=== PATIENT | male | born 1980 | race Caucasian/White ===

== ENCOUNTER 2024-06-12 22:11 | Emergency (ER) | payer OTHER, SELFPAY ==
[2024-06-12 22:14] VITALS: BP 147/85
--- NOTE | 2024-06-13 00:36 | ED.GENMED ---
History of Present Illness
General
Chief Complaint: Musculo-Skeletal Complaint
Source: patient
Exam Limitations: none
Time Seen by Provider: 06/13/24 00:14
History of Present Illness
History of Present Illness:
43yoM with no significant past medical history presenting for evaluation of rib pain. There is a drop-down area underneath his garage. He was pushing a lawnmower into the garage when he lost his footing and tripped. He struck in L lower anterior
ribcage against the lawnmower. He was having some minor discomfort in the area throughout the day today but he was able to do yard work. Around 9pm this evening, he got out of the shower and lifted his arm to dry his hair when he felt a pop in his
ribcage followed by severe pain. Pain is worse with movement and breathing. No abdominal pain.
Past History
Past History
ED Past Medical History: Other (PSORIASIS)
Social History
Tobacco: Non-smoker
Alcohol: Occasional
Drug: None
Personal:
Living: with family
Phy Exam
Physical Exam
Physical Exam:
Appears uncomfortable due to pain. Patient having difficulty sitting back on stretcher due to pain.
General Physical Exam
General Presentation: well appearing and mild distress
General Skin: warm and dry
General Habitus: normal
General Mental: alert
ENT Exam
ENT Exam: normocephalic
Pulmonary Exam
Pulmonary Exam: lungs clear, no respiratory distress, no rales, no crackles, no rhonchi and other (+Tenderness to L anterior lower ribcage. No skin changes or crepitus. Breath sounds equal bilaterally. )
Gastrointestinal Exam
Gastrointestinal Exam: non tender, soft and non distended
Neurological Exam
Neurological Exam: alert
[place] Coma Scale
Eye Opening: Spontaneous
Verbal Response: Oriented
Motor Response: Obeys Commands
GCS Total Score: 15
Skin Exam
Skin Exam: normal color and warm/dry
Psychiatric Exam
Psychiatric Exam: normal mood/affect
Course
Orders/Labs/Results
Orders:
Orders
06/12/24 22:18
CR Chest - 2 Views Urgent
Reason For Exam: fall, injury
06/13/24 00:33
CT Chest W/o Iv Contrast Urgent
Comment:
Reason For Exam: L anterior rib pain
Acetaminophen [Tylenol] 1,000 mg PO NOW STA
Ketorolac [Toradol] 30 mg IM NOW STA
Lidocaine [Lidocaine 4% Patch] 1 patch TOPICAL NOW STA
Apply Lidocaine patch(s) to:: L anterior ribcage
Oxycodone [Roxicodone] 5 mg PO NOW STA
Vital Signs
Initial and Last Documented VS:
Initial Vital Signs
Temp Pulse Resp BP Pulse Ox
98.2 F 71 18 147/85 100
06/12/24 22:14 06/12/24 22:14 06/12/24 22:14 06/12/24 22:14 06/12/24 22:14
Last Documented Vital Signs
Temp Pulse Resp BP Pulse Ox
98.2 F 71 18 147/85 100
06/12/24 22:14 06/12/24 22:14 06/12/24 22:14 06/12/24 22:14 06/12/24 22:14
MDM/Problems Addressed
Differential Diagnosis Includes:
43yoM here with L rib pain. Had an injury yesterday after tripped and hitting against a lawnmower. Pain became severe tonight after lifting arm. [place] a pop and now having significant pain. VSS. He appears uncomfortable due to pain. There is rib
tenderness on exam. No crepitus or skin changes. Bilateral breath sounds equal. No abdominal tenderness present. Differential diagnosis includes: rib fracture, rib contusion, pneumothorax
Initial ED plan: CXR obtained in triage is normal. Will check CT chest given degree of pain. IM Toradol, Tylenol, oxycodone, and lidocaine patch for pain.
*Critical Care Note
Total Time (30-74mins, 75-104mins- exclusive of procedures): Not Applicable
Update Note
Update Note:
CT negative for rib fracture and other acute findings. Presentation consistent with rib sprain/contusion. Supportive care discussed including ice, lidocaine patch, Tylenol/ibuprofen. Prescription given for Robaxin. Advised f/u with PCP. Patient
discharged in stable condition.
ED Attending Note
-
Portions of this chart may have been created with voice recognition software.� Occasional wrong word or��sound alike� substitutions may have occurred due to the inherent limitations of voice recognition software.
Discharge Plan
Departure
Patient Disposition: Home (Routine Discharge)
Date of Disposition: 06/13/24
Time of Disposition: 02:48
Patient with high blood pressure during this ER visit?: Yes
Discharge Problem:
Rib sprain
Instructions: Rib injury in adults
Prescriptions:
New
methocarbamol 750 mg tablet
750 mg PO Q8H PRN (Reason: muscle spasms) Qty: 20 0RF
No Action
clonazepam 1 MG tablet
1 mg PO BID
Patient Comments:
took 15 at this time
calcium carbonate-vitamin D3 1 TAB tablet
1 tab PO TID
lamotrigine 25 MG tablet, chewable dispersible
25 mg PO DAILY
hydrocodone-acetaminophen [Vicodin] 1 TAB tablet
1 tab PO DAILY
paroxetine HCl [Paxil] 40 MG tablet
40 mg PO DAILY
Patient Comments:
took 15 tablets at this time
Referrals:
Sae Chen MD [Family Provider] -
Activity Restrictions/Additional Instructions:
Apply ice to affected area. Use lidocaine patches daily (12 hours on, 12 hours off). Take Tylenol 650mg and ibuprofen 600mg every 6 hours as needed. Take Robaxin (muscle relaxant) as needed for spasms/breakthrough pain.
Please follow-up with your family doctor. Return to the ER with any new or worsening symptoms.
Interventions
Interventions:
*Risk Screen - Suicide Last Done: 06/12/24 22:18
*General Assessment Last Done: 06/12/24 22:18
*Neglect/Abuse Screening Last Done: 06/12/24 22:18
*ED- Fall Risk Assessment Last Done: 06/13/24 02:25
*ED COVID-19 Vaccine History Last Done: 06/12/24 22:18
*Nursing Disposition Last Done: 06/13/24 03:26
ED-Musculoskeletal Assessment Last Done: 06/13/24 00:55
Discharge Date and Time
Discharge Date/Time: 06/13/24 03:27
Print Language: LIBERIAN
[2024-06-13] MEDS: TYLENOL 1000 MG PO (00:47)
[2024-06-13] MEDS: TORADOL 30 MG IM (00:48)
[2024-06-13] MEDS: ROXICODONE 5 MG PO (00:48)
[2024-06-13] MEDS: LIDOCAINE 4% PATCH 1 PATCH TOPICAL (00:51)
== END 2024-06-13 03:27 | disposition home or self-care (01) ==
LOC: EMR 22:11
PROVIDERS: EMERGENCY PHYSICIAN Emergency Medicine; FAMILY PHYSICIAN Internal Medicine
DX: S23.41XA Sprain of ribs, initial encounter (principal); W19.XXXA Unspecified fall, initial encounter; L40.9 Psoriasis, unspecified
CPT/HCPCS: 99284; 96372; 71046; 71250

== ENCOUNTER 2025-02-15 17:55 | Emergency (ER) | payer SELFPAY ==
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
== END 2025-02-15 21:40 | disposition home or self-care (01) ==
LOC: EMR 17:55
PROVIDERS: EMERGENCY PHYSICIAN Emergency Medicine; FAMILY PHYSICIAN Internal Medicine
DX: Z04.1 Encounter for examination and observation following transport accident (principal); V49.40XA Driver injured in collision with unspecified motor vehicles in traffic accident, initial encounter; Y92.410 Unspecified street and highway as the place of occurrence of the external cause; L40.9 Psoriasis, unspecified
CPT/HCPCS: 99283; 72050